=== PATIENT | male | born 1975 | race African-American/Black ===

== ENCOUNTER 2019-06-19 19:24 | Inpatient (IN) ==
[2019-06-19 20:10] LABS: #Basophils 0.1 thou/uL (0.0-0.2); #Lymphocytes 1.6 thou/uL (1.20-3.40); #Neutrophils 7.5 thou/uL (1.40-6.50); %Basophils 0.6 % (0.0-1.0); %Eosinophils 0.1 % (0.0-10.0); %Lymphocytes 15.3 % (21.0-51.0); %Monocytes 10.2 % (0.0-10.0); %Neutrophils 73.9 % (42.0-75.0); Hemoglobin 15.4 g/dL (14.0-18.0); Mean Corpuscular Volume 88.1 fL (78.0-98.0); Mean Platelet Volume 7.1 fL (7.4-10.4); Platelet Count 214 thou/uL (130-400); RBC Distribution Width 14.4 % (11.5-14.5); Red Blood Cell (RBC) Count 5.13 mill/uL (4.70-6.10); White Blood Cell (WBC) Count 10.2 thou/uL (4.8-10.8)
[2019-06-19] MEDS ORDERED: Multivitamins, Adult 10 ML, Thiamine HCl 100 MG, Folic Acid 1 MG in Dextrose 5 %-0.45 %... IV SCH (20:30)
[2019-06-19 20:32] LABS: ALT (SGPT) 32 U/L (8-55); AST (SGOT) 73 U/L (5-34); Albumin 3.8 g/dL (3.5-5.0); Alkaline Phosphatase 109 U/L (40-110); Anion Gap 24 mmol/L (10-20); BUN (Urea Nitrogen) 27 mg/dL (8.9-20.6); Bilirubin, Total 0.4 mg/dL (0.2-1.2); CK (CPK) 1526 U/L (30-200); Calc. Creatinine Clearance 0 mL/min (70-130); Calcium 7.8 mg/dL (7.8-10.44); Carbon Dioxide 21 mmol/L (22-29); Chloride 98 mmol/L (98-107); Estimated GFR-MDRD 63; Globulin 3.7 g/dL (2.4-3.5); Glucose 120 mg/dL (70-105); Lipase 129 U/L (8-78); Protein, Total 7.5 g/dL (6.0-8.3); Sodium 140 mmol/L (136-145)
[2019-06-19 20:34] LABS: Acetaminophen Less than 6.0 mcg/mL (10.0-30.0); Salicylate Less than 8.0 mg/dL (15.0-30.0)
--- NOTE | 2019-06-19 20:42 | RAD ---
RADIOGRAPH CHEST 1 VIEW: DATE: 06/19/2019 HISTORY: 44-year-old male status post vomiting. Rule out aspiration. FINDINGS: There are no airspace densities, pulmonary edema, pneumothorax, or cardiomegaly. The lateral costophr enic angles are sharp. IMPRESSION: No acute cardiopulmonary findings.
[2019-06-19 20:51] LABS: Alcohol 521 mg/dL (Less than 10)
[2019-06-19] MEDS ORDERED: Ondansetron PF 4 MG/2 ML Vial ONE (22:08)
[2019-06-19] MEDS ORDERED: Lorazepam 2 MG/ML VIAL ONE (22:33)
[2019-06-20] MEDS ORDERED: Lorazepam 2 MG/ML VIAL ONE ×2 (00:37→01:26)
[2019-06-20] MEDS ORDERED: Ondansetron ODT 4 MG TAB SL PRN (02:34)
[2019-06-20] MEDS ORDERED: Ondansetron PF 4 MG/2 ML Vial IVP PRN (02:34)
[2019-06-20] MEDS ORDERED: Acetaminophen 325 MG TAB PO PRN ×2 (02:34→10:33)
[2019-06-20 02:37] VITALS: BMI 31.6
[2019-06-20] MEDS ORDERED: Lactated Ringer's 1,000 ML IV SCH (02:45)
[2019-06-20] MEDS ORDERED: Diazepam 5 MG TAB PO PRN (02:47)
[2019-06-20] MEDS ORDERED: Diazepam 5 MG TAB PO SCH (03:00)
[2019-06-20 08:24] LABS: ALT (SGPT) 23 U/L (8-55); AST (SGOT) 53 U/L (5-34); Albumin 3.2 g/dL (3.5-5.0); Alkaline Phosphatase 94 U/L (40-110); Anion Gap 16 mmol/L (10-20); BUN (Urea Nitrogen) 16 mg/dL (8.9-20.6); Bilirubin, Total 0.9 mg/dL (0.2-1.2); Calc. Creatinine Clearance 174 mL/min (70-130); Calcium 7.2 mg/dL (7.8-10.44); Carbon Dioxide 25 mmol/L (22-29); Chloride 98 mmol/L (98-107); Estimated GFR-MDRD Greater than 90; Glucose 101 mg/dL (70-105); Magnesium 1.4 mg/dL (1.6-2.6); Phosphorus 2.3 mg/dL (2.3-4.7); Protein, Total 6.2 g/dL (6.0-8.3); Sodium 136 mmol/L (136-145)
[2019-06-20] MEDS ORDERED: Propofol 1,000 MG/100 ML VIAL IV ONE (08:28)
[2019-06-20] MEDS ORDERED: FLU VACC QS2019-20(6MOS UP)/PF 60 MCG/0.5 ML SYRINGE IM ONE (09:00)
[2019-06-20] MEDS ORDERED: Magnesium Sulfate 4 GM in Sodium Chloride 0.9% 250 ML 250 ML IVPB SCH (09:00)
[2019-06-20] MEDS ORDERED: Ondansetron ODT 4 MG TAB PO PRN (10:33)
[2019-06-20] MEDS ORDERED: Calcium Carbonate 500 MG ChewTAB PO PRN (10:33)
[2019-06-20] MEDS ORDERED: Senokot S 8.6-50 MG TAB PO PRN (10:33)
[2019-06-20] MEDS ORDERED: Bisacodyl 10 MG SUPP PR PRN (10:33)
[2019-06-20] MEDS: Ondansetron PF 4 MG/2 ML Vial IVP PRN ×2 (11:07→18:07)
[2019-06-20 11:10] LABS: Amphetamine Not Detected (NotDetected); Barbiturates Screen Not Detected (NotDetected); Benzodiazepine Screen Detected (NotDetected); Cocaine Metabolite Screen Not Detected (NotDetected); Medtox Control Line Valid? VALID (VALID); Medtox Reader # READER 4; Methadone Not Detected (NotDetected); Methamphetamine Not Detected (NotDetected); Opiate Screen Not Detected (NotDetected); Oxycodone Screen Not Detected (NotDetected); Phencyclidine (PCP) Not Detected (NotDetected); THC/Cannabinoid Screen Detected (NotDetected); Tricyclic Screen Not Detected (NotDetected)
--- NOTE | 2019-06-20 11:23 | HP ---
PRIMARY CARE PHYSICIAN: The patient is from out of town. HISTORY OF PRESENT ILLNESS: The patient is a 44-year-old male with chronic alcohol abuse, was brought in by EMS yesterday evening due to altered mentation. The patient was found in his truck. He was wandering around his motel. He had vomited on himself per EMS. His alcohol level in the emergency room was 521. At this time, the patient's mentation has significantly improved. He has some nausea. He denies any complaints except for generalized muscle aches. No fever or chills reported. He denies any suicidal ideation. PAST MEDICAL HISTORY: 1. Hypertension. 2. Anxiety. 3. Chronic alcoholism. 4. Chronic insomnia, on Seroquel. PAST SURGICAL HISTORY: Reviewed with the patient and none. ALLERGIES: NO KNOWN DRUG ALLERGIES. CURRENT HOME MEDICATIONS: 1. Lisinopril 40 mg daily. 2. Amlodipine 10 mg daily. 3. Seroquel 25 mg at bedtime. SOCIAL HISTORY: As discussed above. He also abuses cannabis and tobacco. He is currently homeless. FAMILY HISTORY: Negative for premature coronary artery disease. REVIEW OF SYSTEMS: All other review of systems was reviewed and was found negative. PHYSICAL EXAMINATION: VITAL SIGNS: On ER arrival showed temperature 97.4, respirations of 18, pulse rate of 112, and blood pressure of 111/89 with O2 saturation 95% on room air. GENERAL: A 44-year-old male, in no apparent distress. Mentation improving. Still has some nausea. HEENT: Head, atraumatic and normocephalic. Sclerae anicteric. Moist mucous membranes. No oral lesion. NECK: Supple. No JVD appreciated. No carotid bruit. LUNGS: Showed diminished air entry at bilateral bases. No wheezing or rales. HEART: S1 and S2 present. Regular rate and rhythm. No rubs or gallops. ABDOMEN: Soft and nontender. Bowel sounds present. No guarding rigidity. EXTREMITIES: No edema or calf tenderness. NEUROLOGIC: The patient is moving all of his extremities appropriately. Power was 5/5 in all extremities. PSYCHIATRIC: Alert, awake, and oriented x3. SKIN: Warm and dry. LYMPH NODES: No palpable lymph nodes in the neck. PERIPHERAL VASCULAR: Radial pulses palpable bilaterally. MUSCULOSKELETAL: No joint swelling tenderness. LABORATORY FINDINGS: Potassium 3.0 with bicarbonate 21, BUN 27, creatinine 1.48. CK of 1526. WBC 10.2 with hemoglobin 15.4, platelet count of 214. Magnesium 1.4. Plasma alcohol was 521. Urine drug screen was not done. Chest x-ray by my review was negative for infiltrate or edema. Telemetry monitoring by my review showed sinus rhythm/sinus tachycardia. IMPRESSION: 1. Toxic metabolic encephalopathy secondary to alcohol intoxication. 2. Acute kidney injury secondary to dehydration, nausea, vomiting, and alcohol abuse. 3. Hypokalemia/hypomagnesemia. 4. Slightly abnormal LFTs secondary to chronic alcoholism. 5. Rhabdomyolysis with CK of 1526. 6. Obesity with a BMI of 31.6. 7. Hypertension. 8. Anxiety. 9. Chronic insomnia. 10. Dehydration. PLAN: The patient will be started on alcohol withdrawal protocol. We will replace electrolytes. He was extensively counseled to quit drinking. He, however, prefers to continue drinking. We will start him on thiamine, folic acid, and multivitamin. IV fluids for rhabdomyolysis. Restart his home medications once renal function improves. Recheck labs in a.m. We will consult [facility] when medically stable. The patient understands the above plan of care in detail. He stated understanding. Job ID: [id number]
[2019-06-20] MEDS: Potassium Chloride 20 MEQ TAB PO SCH ×2 (11:38→18:05)
[2019-06-20] MEDS: 1/2 NS w/KCL 20 mEq 1,000 ML IV SCH ×3 (11:38→19:51)
[2019-06-20] MEDS: Lorazepam 1 MG TAB PO PRN ×3 (11:38→21:39)
[2019-06-20] MEDS ORDERED: BEER 1 CAN PO SCH ×2 (12:00)
[2019-06-20] MEDS: cloNIDine 0.1 MG TAB PO SCH ×2 (14:13→19:51)
[2019-06-20] MEDS ORDERED: Pantoprazole 40 MG VIAL IVP SCH (14:45)
[2019-06-20] MEDS: BEER 1 CAN PO SCH (18:05)
[2019-06-20] MEDS ORDERED: Thiamine 100 MG TAB PO SCH (21:00)
[2019-06-20] MEDS ORDERED: Folic Acid 1 MG TAB PO SCH (21:00)
[2019-06-20] MEDS ORDERED: Lisinopril 5 MG TAB PO SCH (21:00)
[2019-06-20] MEDS ORDERED: Multivit, Therapeutic 1 TAB PO SCH (21:00)
[2019-06-20] MEDS ORDERED: Famotidine 20 MG TAB PO SCH (21:00)
[2019-06-21] MEDS: Lorazepam 1 MG TAB PO PRN ×3 (01:43→15:02)
[2019-06-21] MEDS ORDERED: Diazepam 5 MG TAB PO PRN (04:00)
[2019-06-21] MEDS: 1/2 NS w/KCL 20 mEq 1,000 ML IV SCH (04:15)
[2019-06-21 06:43] LABS: ALT (SGPT) 26 U/L (8-55); AST (SGOT) 58 U/L (5-34); Albumin 3.6 g/dL (3.5-5.0); Alcohol Less than 10 mg/dL (Less than 10); Alkaline Phosphatase 112 U/L (40-110); Anion Gap 15 mmol/L (10-20); BUN (Urea Nitrogen) 7 mg/dL (8.9-20.6); Bilirubin, Total 1.4 mg/dL (0.2-1.2); CK (CPK) 1147 U/L (30-200); Calc. Creatinine Clearance 198 mL/min (70-130); Calcium 8.6 mg/dL (7.8-10.44); Carbon Dioxide 24 mmol/L (22-29); Chloride 97 mmol/L (98-107); Estimated GFR-MDRD Greater than 90; Globulin 3.4 g/dL (2.4-3.5); Glucose 101 mg/dL (70-105); Potassium 3.7 mmol/L (3.5-5.1); Sodium 132 mmol/L (136-145)
[2019-06-21] MEDS ORDERED: Potassium Phosphate 15 MMOL in Sodium Chloride 0.9% 250 ML 250 ML IVPB SCH (07:30)
[2019-06-21] MEDS: cloNIDine 0.1 MG TAB PO SCH ×2 (07:59→15:02)
[2019-06-21] MEDS: Potassium Chloride 20 MEQ TAB PO SCH ×2 (08:00→11:36)
[2019-06-21] MEDS ORDERED: Pantoprazole 40 MG VIAL IVP SCH (09:00)
[2019-06-21] MEDS: BEER 1 CAN PO SCH (09:07)
[2019-06-21 11:40] VITALS: TEMP 98.7
[2019-06-21] MEDS ORDERED: BEER 1 CAN PO SCH (12:00)
[2019-06-21] MEDS: Ondansetron PF 4 MG/2 ML Vial IVP PRN (13:00)
[2019-06-21 15:04] VITALS: BP 136/88
--- NOTE | 2019-06-22 21:54 | DIS ---
DATE OF ADMISSION: 06/20/2019 DATE OF DISCHARGE: 06/21/2019 DISCHARGE DISPOSITION: Home. FOLLOWUP: 1. Follow up with [facility] in 1 week. 2. Follow up with [facility] as outpatient. 3. CMP and CK after 1 week is recommended. Primary care physician advised to follow. DISCHARGE INSTRUCTIONS: The patient was seen and examined on the day of discharge. Denies any new complaints. No chest pain, shortness of breath, or palpitations reported. The patient is ambulating in the hallway. BRIEF HOSPITAL COURSE: The patient is a 44-year-old male with chronic alcohol abuse, presented to the emergency room with altered mentation. He was found in his truck. He was wandering around the motel. He also had vomited himself. Please refer to the history and physical for further details. The patient was admitted to the hospital with a diagnosis of toxic metabolic encephalopathy secondary to alcohol intoxication. His blood alcohol on admission was 521. His urine drug screen was positive for cannabinoid as well. He was found to have acute kidney injury with creatinine 1.48, BUN of 27, potassium of 3.0, as well as CK of 1526. He showed good improvement with IV fluids as well as alcohol withdrawal protocol. His mentation significantly improved. He was evaluated by [facility]. He has been cleared by [facility] for discharge. The patient denies any active suicidal ideation. He appears stable for discharge. FINAL DIAGNOSES: 1. Toxic metabolic encephalopathy secondary to alcohol intoxication, resolved. 2. Acute kidney injury secondary to dehydration, nausea, vomiting, as well as alcohol abuse. 3. Hypokalemia, replaced. 4. Hypomagnesemia, replaced. 5. Slightly abnormal LFTs probably secondary to chronic alcoholism. Repeat LFTs next week is recommended. 6. Rhabdomyolysis, improving. Repeat CK next week is recommended. The patient was advised to maintain adequate oral intake. 7. Obesity with a BMI of 31.6. 8. Hypertension. 9. Anxiety. 10. Chronic insomnia. 11. Dehydration. PLAN: Plan was discussed with the patient in detail. He stated understanding. Job ID: [id number]
== END 2019-06-21 16:20 | disposition home or self-care (01) | DRG 896 ==
LOC: ERS 19:24 → IMCU/EMU 06-20 01:23 → OBSVTOIN 06-20 01:23 → T4-A 06-20 12:30
PROVIDERS: ADMIT Internal Medicine; ATTEND Internal Medicine
DX: F10.229 Alcohol dependence with intoxication, unspecified (principal); G92 Toxic encephalopathy; N17.9 Acute kidney failure, unspecified; M62.82 Rhabdomyolysis; T51.0X1A Toxic effect of ethanol, accidental (unintentional), initial encounter; Y90.8 Blood alcohol level of 240 mg/100 ml or more; E86.0 Dehydration; E83.42 Hypomagnesemia; E66.9 Obesity, unspecified; F17.290 Nicotine dependence, other tobacco product, uncomplicated; F41.9 Anxiety disorder, unspecified; F51.04 Psychophysiologic insomnia; I10 Essential (primary) hypertension; Z59.0 Homelessness; Z68.31 Body mass index [BMI] 31.0-31.9, adult; Z79.899 Other long term (current) drug therapy; E87.6 Hypokalemia; F12.10 Cannabis abuse, uncomplicated
CPT/HCPCS: 36415; 71045; 80053; 80306; 80307; 82550; 83690; 83735; 84100; 85025; 94760; 96365; 96366; 96375; 96376; C9113; J2060; J2405; J2704; J3411; J3475; J3480; J7042; J7050; Q0162

== ENCOUNTER 2019-06-22 20:11 | Emergency (ER) | payer SELFPAY ==
[2019-06-22 20:54] LABS: #Basophils 0.1 thou/uL (0.0-0.2); #Eosinphils 0.1 thou/uL (0.0-0.7); #Lymphocytes 1.8 thou/uL (1.20-3.40); #Monocytes 1.3 thou/uL (0.11-0.59); %Basophils 0.8 % (0.0-1.0); %Eosinophils 0.7 % (0.0-10.0); %Lymphocytes 15.9 % (21.0-51.0); %Monocytes 11.5 % (0.0-10.0); %Neutrophils 71.1 % (42.0-75.0); Hemoglobin 13.2 g/dL (14.0-18.0); Mean Corpuscular HGB CONC 33.6 g/dL (32.0-36.0); Mean Corpuscular Hemoglobin 29.9 pg (27.0-31.0); Mean Platelet Volume 8.2 fL (7.4-10.4); Platelet Count 180 thou/uL (130-400); Red Blood Cell (RBC) Count 4.42 mill/uL (4.70-6.10); White Blood Cell (WBC) Count 11.3 thou/uL (4.8-10.8)
[2019-06-22 21:25] LABS: Acetaminophen Less than 6.0 mcg/mL (10.0-30.0); Alcohol 249 mg/dL (Less than 10); Salicylate Less than 8.0 mg/dL (15.0-30.0)
[2019-06-22 21:38] LABS: Bacteria/HPF None Seen HPF (None Seen); Bilirubin Negative (Negative); Blood, Urine 1+ (Negative); Clarity Clear (Clear); Glucose, Urine (Dipstick) Normal (Negative); Leukocyte 250 Leu/uL (Negative); Nitrite Negative (Negative); Protein, Urine (Dipstick) 70 mg/dL (Neg-Trace); Squamous Epithelial 0-3 HPF (0-3); Urobilinogen Normal mg/dL (Less than 2); WBC/HPF 21-50 HPF (0-3)
[2019-06-22 21:45] LABS: Medtox Reader # READER 1; THC/Cannabinoid Screen Detected (NotDetected)
[2019-06-22 21:46] LABS: Amphetamine Not Detected (NotDetected); Barbiturates Screen Not Detected (NotDetected); Benzodiazepine Screen Detected (NotDetected); Cocaine Metabolite Screen Not Detected (NotDetected); Medtox Control Line Valid? VALID (VALID); Methadone Not Detected (NotDetected); Methamphetamine Not Detected (NotDetected); Opiate Screen Not Detected (NotDetected); Oxycodone Screen Not Detected (NotDetected); Phencyclidine (PCP) Not Detected (NotDetected); Tricyclic Screen Not Detected (NotDetected)
[2019-06-22] MEDS ORDERED: Lorazepam 2 MG/ML VIAL ONE (22:26)
[2019-06-22] MEDS ORDERED: Nicotine 14 MG PATCH ONE (22:43)
[2019-06-23 00:04] LABS: Albumin 3.5 g/dL (3.5-5.0)
[2019-06-23 00:05] LABS: Calcium 7.8 mg/dL (7.8-10.44); Chloride 102 mmol/L (98-107); Potassium 3.4 mmol/L (3.5-5.1); Sodium 138 mmol/L (136-145)
[2019-06-23 00:06] LABS: Glucose 109 mg/dL (70-105); Protein, Total 6.5 g/dL (6.0-8.3)
[2019-06-23 00:07] LABS: Anion Gap 14 mmol/L (10-20); Carbon Dioxide 25 mmol/L (22-29)
[2019-06-23 00:08] LABS: Bilirubin, Total 0.2 mg/dL (0.2-1.2)
[2019-06-23 00:09] LABS: Alkaline Phosphatase 94 U/L (40-110)
[2019-06-23 00:10] LABS: BUN (Urea Nitrogen) 13 mg/dL (8.9-20.6); Calc. Creatinine Clearance 0 mL/min (70-130); Estimated GFR-MDRD Greater than 90
[2019-06-23 00:11] LABS: AST (SGOT) 46 U/L (5-34)
[2019-06-23 00:12] LABS: ALT (SGPT) 22 U/L (8-55); CK (CPK) 906 U/L (30-200)
[2019-06-23] MEDS ORDERED: hydrOXYzine 25 MG TAB ONE (14:58)
[2019-06-24] MEDS ORDERED: Nicotine 14 MG PATCH TOP SCH (01:00)
[2019-06-24] MEDS ORDERED: traZODone HCl 50 MG TAB PO PRN (01:10)
[2019-06-24] MEDS ORDERED: hydrOXYzine Pamoate 25 mg Capsule PO PRN (09:50)
[2019-06-24] MEDS ORDERED: hydrOXYzine 25 MG TAB ONE (10:49)
[2019-06-25] MEDS ORDERED: Lisinopril 20 MG TAB PO SCH (09:00)
[2019-06-25] MEDS ORDERED: Amlodipine 10 MG TAB PO SCH (09:00)
== END 2019-06-24 16:34 ==
LOC: ERS 20:11
DX: F32.9 Major depressive disorder, single episode, unspecified (principal); F10.20 Alcohol dependence, uncomplicated; F41.9 Anxiety disorder, unspecified; I10 Essential (primary) hypertension; F17.290 Nicotine dependence, other tobacco product, uncomplicated; Z79.899 Other long term (current) drug therapy
CPT/HCPCS: 36415; 80053; 80306; 80307; 81003; 81015; 82550; 84443; 85025; 93005; 96361; 96374; J2060

== ENCOUNTER 2020-01-02 08:59 | Inpatient (IN) | payer OTHER, SELFPAY ==
[2020-01-02] MEDS ORDERED: Lorazepam 2 MG/ML VIAL ONE ×2 (09:17→11:38)
[2020-01-02] MEDS ORDERED: Diltiazem 125 MG/25 ML ONE (09:51)
[2020-01-02 10:29] LABS: Bacteria/HPF None Seen HPF (None Seen); Bilirubin Negative (Negative); Blood, Urine 2+ (Negative); Clarity Clear (Clear); Glucose, Urine (Dipstick) Normal (Negative); Ketone, Urine Trace mg/dL (Negative); Leukocyte Negative Leu/uL (Negative); Nitrite Negative (Negative); Protein, Urine (Dipstick) 30 mg/dL (Neg-Trace); RBC/HPF 0-3 HPF (0-3); Specific Gravity, Urine 1.012 (1.002-1.036); Squamous Epithelial 0-3 HPF (0-3); Urobilinogen Normal mg/dL (Less than 2); WBC/HPF 0-3 HPF (0-3); pH, Urine 6.5 (5.0-9.0)
[2020-01-02 10:29] LABS: #Monocytes 0.4 thou/uL (0.11-0.59); #Neutrophils 15.5 thou/uL (1.40-6.50); %Basophils 0.3 % (0.0-1.0); %Eosinophils 0.2 % (0.0-10.0); %Neutrophils 91.5 % (42.0-75.0); Hemoglobin 15.1 g/dL (14.0-18.0); Mean Corpuscular HGB CONC 35.6 g/dL (32.0-36.0); Mean Corpuscular Volume 86.9 fL (78.0-98.0); Mean Platelet Volume 9.2 fL (7.4-10.4); Platelet Count 128 thou/uL (130-400); RBC Distribution Width 12.4 % (11.5-14.5); Red Blood Cell (RBC) Count 4.87 mill/uL (4.70-6.10)
[2020-01-02 10:32] LABS: Amphetamine Not Detected (NotDetected); Barbiturates Screen Not Detected (NotDetected); Benzodiazepine Screen Not Detected (NotDetected); Cocaine Metabolite Screen Not Detected (NotDetected); Medtox Control Line Valid? VALID (VALID); Medtox Reader # READER 4; Methadone Not Detected (NotDetected); Methamphetamine Not Detected (NotDetected); Opiate Screen Not Detected (NotDetected); Oxycodone Screen Not Detected (NotDetected); Phencyclidine (PCP) Not Detected (NotDetected); THC/Cannabinoid Screen Detected (NotDetected); Tricyclic Screen Not Detected (NotDetected)
[2020-01-02 10:42] LABS: ALT (SGPT) 129 U/L (8-55); AST (SGOT) 279 U/L (5-34); Acetaminophen Less than 6.0 mcg/mL (10.0-30.0); Albumin 3.4 g/dL (3.5-5.0); Alcohol 60 mg/dL (Less than 10); Alkaline Phosphatase 88 U/L (40-110); Anion Gap 19 mmol/L (10-20); BUN (Urea Nitrogen) 13 mg/dL (8.9-20.6); Calc. Creatinine Clearance 0 mL/min (70-130); Calcium 6.9 mg/dL (7.8-10.44); Carbon Dioxide 19 mmol/L (22-29); Chloride 102 mmol/L (98-107); Estimated GFR-MDRD Greater than 90; Globulin 2.8 g/dL (2.4-3.5); Glucose 101 mg/dL (70-105); Protein, Total 6.2 g/dL (6.0-8.3); Salicylate Less than 8.0 mg/dL (15.0-30.0); Sodium 137 mmol/L (136-145)
--- NOTE | 2020-01-02 10:44 | CT ---
CT Brain WO Con History: Seizure Comparison: None. Findings: No acute hemorrhage or infarct. No midline shift or mass effect. Ventricular size and extra -axial CSF spaces are normal. Calvarium is intact. Paranasal sinuses and mastoids are clear. Impression: No acute intracranial abnormality.
[2020-01-02 10:46] LABS: Potassium 2.5 mmol/L (3.5-5.1)
[2020-01-02 11:07] LABS: CKMB 92.8 ng/mL (0-6.6)
--- NOTE | 2020-01-02 11:12 | RAD ---
XR Chest 1 View Portable History: Seizure Comparison: Radiograph June 19, 2019 Findings: Lungs are clear. No pneumothorax. No effusion. Heart size appears normal. No acute osseous abnormality. Impression: No acute intrathoracic abnormality.
[2020-01-02] MEDS ORDERED: Potassium Chloride 20 MEQ TAB ONE (11:22)
[2020-01-02] MEDS ORDERED: Aspirin 325 MG TAB ONE (11:22)
[2020-01-02] MEDS ORDERED: cloNIDine 0.1 MG TAB PO PRN (11:25)
[2020-01-02] MEDS ORDERED: Aspirin Chewable 81 MG TAB ONE (11:26)
[2020-01-02] MEDS ORDERED: Calcium Carbonate 500 MG ChewTAB PO PRN (11:27)
[2020-01-02] MEDS ORDERED: cloNIDine 0.1 MG TAB ONE ×2 (11:27→15:59)
[2020-01-02 11:30] LABS: INR-International Normal Ratio 1.2; PTT 27.6 sec (22.9-36.1); Prothrombin Time 14.8 sec (12.0-14.7)
[2020-01-02] MEDS ORDERED: Potassium Chloride 40 MEQ in Sodium Chloride 0.9% 250 ML 250 ML IVPB SCH (11:30)
[2020-01-02] MEDS ORDERED: Diltiazem 125 MG in Sodium Chloride 0.9% 100 ML IVPB SCH (11:30)
[2020-01-02] MEDS ORDERED: Aspirin 81 mg Enteric Coated Tablet PO SCH (11:30)
[2020-01-02] MEDS ORDERED: cloNIDine 0.1 MG TAB PO SCH ×2 (11:30→15:00)
[2020-01-02 11:32] LABS: Magnesium 1.6 mg/dL (1.6-2.6); Phosphorus 2.3 mg/dL (2.3-4.7)
[2020-01-02] MEDS ORDERED: Lorazepam 2 MG/ML VIAL SLOW IVP PRN (11:34)
[2020-01-02] MEDS ORDERED: Nitroglycerin 0.4 MG TAB (25 Tab Bottle) PO PRN (11:35)
[2020-01-02] MEDS ORDERED: Metoprolol Tartrate 5 MG/5 ML VIAL ONE (11:36)
[2020-01-02] MEDS ORDERED: NS 0.9% w/ 40 MEQ KCL 1,000 ML IV SCH (11:45)
[2020-01-02] MEDS ORDERED: Multivitamins, Adult 10 ML, Thiamine HCl 100 MG, Folic Acid 1 MG in Dextrose 5 %-0.45 %... IV SCH (12:00)
[2020-01-02] MEDS ORDERED: Enoxaparin Sodium 100 MG/ML SYRINGE ONE (12:03)
[2020-01-02] MEDS ORDERED: Iopamidol-370 76% 500 ML 1 ML ONE (12:05)
[2020-01-02] MEDS ORDERED: Magnesium 2 GM/50 ML BAG (IN WATER) ONE (12:06)
--- NOTE | 2020-01-02 12:08 | PDOC.HHP ---
Hospitalist HPI - History of Present Illness Gen weakness/Lightheadedness History of Present Illness: Patient is a 44-year-old male with chronic alcohol abuse presented to the emergency room with generalized weakness along with lightheadedness that started when he woke up this morning. He felt fine when he went to sleep last night. He was hospitalized at this facility earlier this year for alcohol intoxication along with acute kidney injury and electrolyte abnormalities. Patient felt lightheaded dizzy along with palpitations. He was seeing spots especially on standing. He denies any seizure like activity or altered mentation. He has been drinking heavily over the last 3 days. No chest pain, syncope, recent immobilization or travel, fever, chills, or focal neurologic deficit reported. In the emergency room, his work-up was consistent with atrial fibrillation with rapid ventricular response. He also was found to have electrolyte abnormality. He was placed on Cardizem drip. ED Course: VITAL SIGNS FriJan 02, 2020 09:13 CRISTY Davis Hannah BP: 99/74, MAP: 82, Pulse: 155, Resp: 22, Pain: 10, O2 sat: 100 on (Room Air), Time: 01/02/2020 09:13. VITAL SIGNS FriJan 02, 2020 09:15 CRISTY Davis Hannah Temp: 97.5 GROIN (Not applicable), Time: 01/02/2020 09:15. VITAL SIGNS FriJan 02, 2020 09:50 CRISTY Tsai Shelley BP: 140/108, MAP: 118, Pulse: 153, Resp: 21, Pain: 5, O2 sat: 100 on (Room Air) , Time: 01/02/2020 09:50. VITAL SIGNS FriJan 02, 2020 09:26 CRISTY Tsai Shelley BP: 122/92, MAP: 102, Pulse: 137, Resp: 19, Pain: 10, O2 sat: 100 on (Room Air) , Time: 01/02/2020 09:26. VITAL SIGNS FriJan 02, 2020 10:10 CRISTY Tsai Shelley BP: 151/103, MAP: 119, Pulse: 145, Resp: 22, Pain: 5, O2 sat: 100 on (Room Air) , Time: 01/02/2020 10:10. VITAL SIGNS FriJan 02, 2020 10:24 CRISTY Tsai Shelley BP: 130/101, MAP: 110, Pulse: 134, Resp: 23, Temp: 98.3 (Oral), Pain: 5, O2 sat : 100, Time: 01/02/2020 10:24. VITAL SIGNS Whitman Jan 02, 2020 10:34 CRISTY Tsai Shelley BP: 142/85, MAP: 104, Pulse: 148, Resp: 19, Pain: 0 sleeping, O2 sat: 100 on ( Room Air), Time: 01/02/2020 10:34. VITAL SIGNS Whitman Jan 02, 2020 11:00 CRISTY Tsai Shelley BP: 135/84, MAP: 107, Pulse: 145, Resp: 19, Pain: 0, O2 sat: 99 on (Room Air), Time: 01/02/2020 11:00. VITAL SIGNS Whitman Jan 02, 2020 11:15 CRISTY Tsai Shelley BP: 136/103, MAP: 114, Pulse: 142, Resp: 20, Pain: 0, O2 sat: 100 on (Room Air) , Time: 01/02/2020 11:15. VITAL SIGNS Whitman Jan 02, 2020 11:30 CRISTY Tsai Shelley BP: 140/108, MAP: 117, Pulse: 155, Resp: 15, Pain: 0, O2 sat: 98 on (Room Air), Time: 01/02/2020 11:30. MEDICATION ADMINISTRATION SUMMARY Whitman Jan 02, 2020 12:07 Drug Name Dose Ordered Route Status Time magnesium sulfate in water 4 g IV Piggy Back Ordered 11:52 01/02/2020 aspirin oral 324 mg Oral Canceled 11:28 01/02/2020 *BANANA BAG 1 L IV Fluid Infusion Ordered 10:26 01/02/2020 *enoxaparin 100 mg Subcutaneous Acknowledged 12:06 01/02/2020 *potassium chloride intravenous 40 mEq IV Piggy Back Acknowledged 11:34 2019 *metoprolol tartrate intravenous 5 mg IV Push Given 12:00 01/02/2020 LORazepam injection 2 mg IV Push Given 11:50 01/02/2020 *aspirin oral 81 mg Oral Given 11:30 01/02/2020 potassium chloride oral 40 mEq Oral Given 11:30 01/02/2020 *cloNIDine HCl 0.1 mg Oral Given 11:30 01/02/2020 dilTIAZem intravenous 10 mg/hr IV Push Given 11:10 01/02/2020 dilTIAZem intravenous 5 mg/hr IV Fluid Infusion Given 10:33 01/02/2020 dilTIAZem intravenous 20 mg IV Push Given 10:21 01/02/2020 sodium chloride 0.9 % intravenous 2 L IV Fluid Infusion Given 09:49 01/02/2020 sodium chloride 0.9 % intravenous 2 L IV Fluid Infusion Given 09:23 01/02/2020 LORazepam injection 2 mg IV Push Given 09:22 01/02/2020 Hospitalist ROS - Review of Systems Respiratory: denies: cough, dry, shortness of breath, hemoptysis, SOB with excertion, pleuritic pain, sputum, wheezing, other Gastrointestinal: denies: nausea, vomiting, abdominal pain, diarrhea, constipation, melena, hematochezia, other Neurological: denies: weakness, numbness, incoordination, change in speech, confusion, seizures, other All other systems reviewed; all pertinent +/- noted in HPI/Subj - Medication Medications: CURRENT MEDICATIONS lisinopril FriJan 02, 2020 09:28 CRISTY Tsai Shelley tablet : Strength - 20 mg : ORAL Patient Dose: 40 mg Oral once a day. amLODIPine FriJan 02, 2020 09:28 CRISTY Tsai Shelley tablet : Strength - 10 mg : ORAL Patient Dose: 10 mg Oral once a day. SEROquel FriJan 02, 2020 09:28 CRISTY Tsai Shelley tablet : Strength - 50 mg : ORAL Patient Dose: 50 mg Oral once a day (at bedtime). omeprazole FriJan 02, 2020 09:28 CRISTY Tsai Shelley capsule,delayed release(DR/EC) : Strength - 40 mg : ORAL Patient Dose: 1 tab(s) Oral once a day. sertraline FriJan 02, 2020 09:28 CRISTY Tsai Shelley tablet : Strength - 50 mg : ORAL Patient Dose: 1 tab(s) Oral once a day. Lexapro FriJan 02, 2020 09:29 CRISTY Tsai Shelley tablet : Strength - 10 mg : ORAL Hospitalist History - Past Medical History Other Medical History: PAST MEDICAL HISTORY: 1. Hypertension. 2. Anxiety. 3. Chronic alcoholism. 4. Chronic insomnia, on Seroquel. PAST SURGICAL HISTORY: Reviewed with the patient and none. ALLERGIES: NO KNOWN DRUG ALLERGIES. CURRENT SOCIAL HISTORY: Episodic Binge drinking. He also abuses cannabis and tobacco. He is currently lives with his father. He asked me not to call his father. FAMILY HISTORY: Negative for premature coronary artery disease. - Exam General Appearance: NAD General - other findings: Anxious appearing Eye: PERRL, anicteric sclera ENT: normocephalic atraumatic, no oropharyngeal lesions, moist mucosa Neck: supple, symmetric, no JVD, no thyromegaly Heart: no gallops, no rubs, irregular, diminshed peripheral pulses Heart - other findings: Tachycardic Respiratory: no wheezes, no rales, no ronchi, normal chest expansion Gastrointestinal: soft, non-tender, normal bowel sounds, no guarding, no rigidity Extremities: no cyanosis, no clubbing, no edema Skin: normal turgor, no lesions Neurological: cranial nerve grossly intact, normal sensation to touch, no weakness, no focal deficits Musculoskeletal: normal tone, normal strength, no muscle wasting Psychiatric: normal affect, A&O x 3 Hospitalist Results - Labs Result Diagrams: 01/02/20 10:15 01/02/20 10:15 Lab results: WBC 17.0 thou/uL (4.8-10.8) H 01/02/20 10:15 Hgb 15.1 g/dL (14.0-18.0) 01/02/20 10:15 Hct 42.3 % (42.0-52.0) 01/02/20 10:15 MCV 86.9 fL (78.0-98.0) 01/02/20 10:15 Plt Count 128 thou/uL (130-400) L 01/02/20 10:15 Neutrophils % 91.5 % (42.0-75.0) H 01/02/20 10:15 Sodium 137 mmol/L (136-145) 01/02/20 10:15 Potassium 2.5 mmol/L (3.5-5.1) L* 01/02/20 10:15 Chloride 102 mmol/L (98-107) 01/02/20 10:15 Carbon Dioxide 19 mmol/L (22-29) L 01/02/20 10:15 BUN 13 mg/dL (8.9-20.6) 01/02/20 10:15 Creatinine 0.95 mg/dL (0.7-1.3) 01/02/20 10:15 Glucose 101 mg/dL (70-105) 01/02/20 10:15 Lactic Acid 5.9 mmol/L (0.5-2.2) H* 01/02/20 10:15 Calcium 6.9 mg/dL (7.8-10.44) L 01/02/20 10:15 Total Bilirubin 1.0 mg/dL (0.2-1.2) 01/02/20 10:15 AST 279 U/L (5-34) H 01/02/20 10:15 ALT 129 U/L (8-55) H 01/02/20 10:15 Alkaline Phosphatase 88 U/L (40-110) 01/02/20 10:15 Ammonia 22 umol/L (18-72) 01/02/20 10:15 CK-MB (CK-2) 92.8 ng/mL (0-6.6) H* 01/02/20 10:15 Troponin I 0.069 ng/mL (< 0.028) H 01/02/20 10:15 Serum Total Protein 6.2 g/dL (6.0-8.3) 01/02/20 10:15 Albumin 3.4 g/dL (3.5-5.0) L 01/02/20 10:15 Lipase 53 U/L (8-78) 01/02/20 10:15 Urine Ketones Trace mg/dL (Negative) A 01/02/20 10:09 Urine Blood 2+ (Negative) A 01/02/20 10:09 Urine Nitrite Negative (Negative) 01/02/20 10:09 Ur Leukocyte Esterase Negative Nikhil/uL (Negative) 01/02/20 10:09 Urine RBC 0-3 HPF (0-3) 01/02/20 10:09 Urine WBC 0-3 HPF (0-3) 01/02/20 10:09 Ur Squamous Epith Cells 0-3 HPF (0-3) 01/02/20 10:09 Urine Bacteria None Seen HPF (None Seen) 01/02/20 10:09 Laboratory Tests 01/02/20 01/02/20 01/02/20 10:09 10:15 10:15 PT INR APTT D-Dimer Lactic Acid 5.9 H* Magnesium AST ALT B-Natriuretic Peptide Lipase 53 TSH 3rd Generation Prolactin U Cannabinoids Screen Detected H Plasma Alcohol 01/02/20 01/02/20 01/02/20 10:15 10:15 10:15 PT INR APTT D-Dimer Lactic Acid Magnesium AST 279 H ALT 129 H B-Natriuretic Peptide Lipase TSH 3rd Generation 0.8664 Prolactin 28.22 H U Cannabinoids Screen Plasma Alcohol 60 H 01/02/20 01/02/20 01/02/20 10:15 10:15 10:16 PT 14.8 H INR 1.2 APTT 27.6 D-Dimer Lactic Acid Magnesium 1.6 AST ALT B-Natriuretic Peptide 19.9 Lipase TSH 3rd Generation Prolactin U Cannabinoids Screen Plasma Alcohol 01/02/20 10:16 PT INR APTT D-Dimer 2.07 H Lactic Acid Magnesium AST ALT B-Natriuretic Peptide Lipase TSH 3rd Generation Prolactin U Cannabinoids Screen Plasma Alcohol - EKG Interpretation EKG: Afib with RVR - Reviewed by me - Radiology Interpretation Chest x-ray Status: image reviewed by me Additional Comment: XR Chest 1 View Portable History: Seizure Comparison: Radiograph June 19, 2019 Findings: Lungs are clear. No pneumothorax. No effusion. Heart size appears normal. No acute osseous abnormality. Impression: No acute intrathoracic abnormality. Hospitalist H&P A/P - Plan Plan: Atrial fibrillation with rapid ventricular response probably due to binge drinking Chronic alcohol abuse HTN Hypokalemia Hypomagnesemia Anxiety Chronic insomnia Cannabis abuse Abnormal LFTs probably secondary to alcoholism Lactic acidosismultifactorial Plan: Patient is currently in atrial fibrillation with rapid ventricular response with heart rate in 150s to 160s despite Cardizem drip at 10 mg/h. Will will administer 5 mg metoprolol. He will be also started on clonidine for possible alcohol withdrawal. Electrolytes will be replaced. Cardizem drip will be continued. Will add oral metoprolol 25 mg twice daily. Echocardiogram will be obtained. Case discussed with cardiology. Serial troponins. Anticoagulation with Lovenox. Patient understands the risk associated with anticoagulation and agrees. He currently lives with his fatherpatient requested not to call his father. He will update his family. Patient was counseled on lifestyle modification. Recheck labs in a.m. monitor closely for alcohol withdrawal. Start thiamine, folic acid and multivitamin. Hold Lisinopril and Amlodipine.
[2020-01-02 13:31] LABS: Anion Gap 14 mmol/L (10-20); BUN (Urea Nitrogen) 11 mg/dL (8.9-20.6); Calc. Creatinine Clearance 0 mL/min (70-130); Calcium 7.1 mg/dL (7.8-10.44); Carbon Dioxide 24 mmol/L (22-29); Chloride 99 mmol/L (98-107); Estimated GFR-MDRD Greater than 90; Glucose 122 mg/dL (70-105); Potassium 3.1 mmol/L (3.5-5.1); Sodium 134 mmol/L (136-145)
[2020-01-02 13:59] LABS: CK (CPK) 10413 U/L (30-200)
[2020-01-02] MEDS ORDERED: Metoprolol Tartrate 25 MG TAB PO SCH (14:00)
--- NOTE | 2020-01-02 14:06 | CT ---
CTA Angio Chest W WO Con History: Diaphoresis. Alcohol withdrawal Comparison: None. Findings: CT angiogram chest performed after the intravenous ministration of contrast. 3-D rendering provided. No proximal segmental pulmonary arterial filling defect. No pericardial effusion. Pulmonary trunk siz e is normal as well as the aorta. Thoracic spine is intact. Sternum and manubrium are intact. Low-grade atelectasis in the lung bases. No confluent airspace consolidation, pneumothorax or effusio n. No suspicious pulmonary nodule. No acute displaced rib fracture. Impression: 1. No pulmonary embolism. 2. No acute inflammatory process within the chest.
[2020-01-02] MEDS ORDERED: Metoprolol Tartrate 25 MG TAB ONE (14:25)
[2020-01-02] MEDS: Potassium Chloride 20 MEQ TAB PO SCH ×3 (14:30→21:28)
[2020-01-02 14:48] VITALS: BMI 29.6
[2020-01-02] MEDS: NS 0.9% w/ 40 MEQ KCL 1,000 ML IV SCH ×3 (15:30→21:49)
[2020-01-02] MEDS: cloNIDine 0.1 MG TAB PO SCH ×2 (16:00→21:29)
--- NOTE | 2020-01-02 16:49 | CON ---
DATE OF CONSULTATION: 01/02/2020 REASON FOR CONSULTATION: Atrial fibrillation with RVR. HISTORY OF PRESENT ILLNESS: Mr. Alves is a very pleasant 44-year-old gentleman, who comes to the hospital for having had a seizure. He drinks a lot of alcohol, and he stopped drinking today after binge, and he thought he had a seizure, drove himself to the ER as he felt palpitations and felt dizzy. He was found to be in atrial fibrillation with RVR and was starting to go through alcohol withdrawal, so he is being admitted for this. He was started on diltiazem drip, currently at 10 and his heart rate is much better controlled from the 160s down to the 120s. PAST MEDICAL HISTORY: 1. History of alcohol abuse. 2. Hypertension. 3. Anxiety and depression. 4. Insomnia. SURGICAL HISTORY: None. SOCIAL HISTORY: Episodic binge drinking. Uses cannabis and tobacco. Living with his father. ALLERGIES: NO KNOWN DRUG ALLERGIES. OUTPATIENT MEDICATIONS: 1. Quetiapine. 2. Lisinopril 40 mg q.h.s. 3. Lexapro. 4. Amlodipine 10 mg a day. REVIEW OF SYSTEMS: A 12-point review of systems was also done and was all negative unless stated in the history of present illness. PHYSICAL EXAMINATION: VITAL SIGNS: Temperature 97.2, pulse 120, respiratory rate 22, saturating 100% on room air, and blood pressure 122/92. GENERAL: Awake, alert, oriented x3. No distress. HEENT: Normocephalic and atraumatic. NECK: Supple. LUNGS: Clear. CARDIOVASCULAR: Irregularly irregular. Heart rate in the 110s to 120s. No murmurs. ABDOMEN: Soft. Positive bowel sounds. EXTREMITIES: No edema. SKIN: Warm and dry. LABORATORY WORK: Reviewed. CBC with a white count of 17, hemoglobin of 15, hematocrit of 42, and platelet count of 128. Coags were reviewed. Chemistries were reviewed. Sodium 134, potassium was 3.1, normal BUN and creatinine, normal GFR. CK was 10,113. Troponin was indeterminate range x2. CK-MB is elevated as well at 92. Prolactin was high. BNP was normal at 19. UA was unremarkable. Toxicology was positive for cannabis. Plasma alcohol was 60. ASSESSMENT: 1. Alcohol withdrawal. 2. Atrial fibrillation with rapid ventricular response. PLAN: 1. Continue to try to rate control at this time. It will be very hard to rate control given he will start going into worsening withdrawal once his alcohol level starts to come back down. 2. Up titrate diltiazem up to 15, and we may have to do p.r.n. boluses of beta max or digoxin to try to slow him down some. 3. Poor candidate for any long-term medication like amiodarone given his alcohol use. Thank you for letting us participate in the care of your patient. We will follow. Job ID: [id number]
[2020-01-02] MEDS ORDERED: Lorazepam 1 MG TAB ONE (16:53)
[2020-01-02] MEDS: Lorazepam 1 MG TAB PO PRN ×2 (16:54→21:28)
[2020-01-02 17:08] LABS: CKMB 72.4 ng/mL (0-6.6); Critical Call CKMB RESULT DECREASING
[2020-01-02] MEDS ORDERED: Metoprolol Tartrate 5 MG/5 ML VIAL IVP PRN (18:00)
[2020-01-02] MEDS ORDERED: Magnesium Sulfate 4 GM in Sodium Chloride 0.9% 250 ML 250 ML IVPB SCH (19:00)
[2020-01-02] MEDS ORDERED: BEER 1 CAN PO SCH (21:00)
[2020-01-02] MEDS ORDERED: Lorazepam 1 MG TAB PO SCH (21:00)
[2020-01-02] MEDS: Cyanocobalamin (Vitamin B-12) 1,000 MCG TAB PO SCH (21:27)
[2020-01-02] MEDS: Famotidine 20 MG TAB PO SCH (21:27)
[2020-01-02] MEDS: Calcium Carbonate 600 MG + Vit D TAB PO SCH (21:29)
[2020-01-02] MEDS: Metoprolol Tartrate 25 MG TAB PO SCH (21:30)
[2020-01-03] MEDS ORDERED: Enoxaparin Sodium 100 MG/ML SYRINGE SC SCH (01:00)
[2020-01-03] MEDS: Enoxaparin Sodium 100 MG/ML SYRINGE SC SCH ×2 (02:45→12:30)
[2020-01-03] MEDS: NS 0.9% w/ 40 MEQ KCL 1,000 ML IV SCH (05:53)
[2020-01-03 05:54] LABS: Phosphorus 2.3 mg/dL (2.3-4.7)
[2020-01-03 05:55] LABS: ALT (SGPT) 95 U/L (8-55); AST (SGOT) 167 U/L (5-34); Albumin 3.1 g/dL (3.5-5.0); Alkaline Phosphatase 90 U/L (40-110); Anion Gap 13 mmol/L (10-20); BUN (Urea Nitrogen) 7 mg/dL (8.9-20.6); Bilirubin, Total 1.3 mg/dL (0.2-1.2); Calc. Creatinine Clearance 205 mL/min (70-130); Calcium 7.9 mg/dL (7.8-10.44); Carbon Dioxide 22 mmol/L (22-29); Chloride 102 mmol/L (98-107); Estimated GFR-MDRD Greater than 90; Globulin 3.1 g/dL (2.4-3.5); Glucose 88 mg/dL (70-105); Magnesium 1.9 mg/dL (1.6-2.6); Protein, Total 6.2 g/dL (6.0-8.3); Sodium 133 mmol/L (136-145)
[2020-01-03 06:07] LABS: CK (CPK) 6067 U/L (30-200)
[2020-01-03 08:41] LABS: #Basophils 0.1 thou/uL (0.0-0.2); #Eosinphils 0.1 thou/uL (0.0-0.7); #Lymphocytes 2.2 thou/uL (1.20-3.40); #Monocytes 0.5 thou/uL (0.11-0.59); #Neutrophils 5.4 thou/uL (1.40-6.50); %Basophils 0.9 % (0.0-1.0); %Lymphocytes 26.5 % (21.0-51.0); %Monocytes 5.7 % (0.0-10.0); Hemoglobin 13.9 g/dL (14.0-18.0); Mean Corpuscular HGB CONC 34.2 g/dL (32.0-36.0); Mean Corpuscular Hemoglobin 30.4 pg (27.0-31.0); Mean Corpuscular Volume 88.8 fL (78.0-98.0); Mean Platelet Volume 9.4 fL (7.4-10.4); Platelet Count 96 thou/uL (130-400); RBC Distribution Width 12.5 % (11.5-14.5); Red Blood Cell (RBC) Count 4.57 mill/uL (4.70-6.10); White Blood Cell (WBC) Count 8.1 thou/uL (4.8-10.8)
[2020-01-03] MEDS ORDERED: Magnesium 2 GM/50 ML 2 GM in Premix Bag 1 BAG IVPB SCH (08:45)
[2020-01-03] MEDS ORDERED: Magnesium Sulfate 2 GM in Sodium Chloride 0.9% 100 ML IVPB SCH (08:45)
[2020-01-03] MEDS: Calcium Carbonate 600 MG + Vit D TAB PO SCH ×2 (08:50→16:41)
[2020-01-03] MEDS: Escitalopram Oxalate 10 mg Tablet PO SCH (08:50)
[2020-01-03] MEDS: Lorazepam 1 MG TAB PO PRN ×3 (08:50→21:55)
[2020-01-03] MEDS: Famotidine 20 MG TAB PO SCH ×2 (08:51→21:51)
[2020-01-03] MEDS: Metoprolol Tartrate 25 MG TAB PO SCH (08:51)
[2020-01-03] MEDS: Folic Acid 1 MG TAB PO SCH (08:51)
[2020-01-03] MEDS: Thiamine 100 MG TAB PO SCH (08:52)
[2020-01-03] MEDS: Multivit, Therapeutic 1 TAB PO SCH (08:52)
[2020-01-03] MEDS ORDERED: Aspirin 81 mg Enteric Coated Tablet PO SCH (09:00)
[2020-01-03] MEDS: cloNIDine 0.1 MG TAB PO SCH ×3 (09:04→21:50)
[2020-01-03] MEDS: Sodium Chloride 0.9% 1,000 ML IV SCH ×3 (09:05→23:55)
[2020-01-03] MEDS ORDERED: Diltiazem 125 MG in Sodium Chloride 0.9% 100 ML IVPB SCH (10:53)
[2020-01-03] MEDS ORDERED: Metoprolol Tartrate 25 MG TAB PO SCH (11:00)
[2020-01-03] MEDS: Potassium Chloride 20 MEQ TAB PO SCH ×2 (11:03→16:41)
[2020-01-03 11:55] LABS: SARS-CoV-2 MS2 Positive; SARS-CoV-2 N Gene Negative; SARS-CoV-2 S Gene Negative; SARS-CoV-2 by NAA Not Detected (NotDetected); SARS-CoV-2 orf1ab Negative
--- NOTE | 2020-01-03 12:51 | PDOC.CPN ---
- Subjective Date: 01/03/20 Time: 12:49 Interval history: Doing better. No new issues. - Review of Systems General: denies: fever/chills, weight/appetite/sleep changes, night sweats, fatigue Respiratory: denies: cough, congestion, shortness of breath, exercise intolerance Cardiovascular: denies: chest pain, palpitation, edema, paroxysmal nocturnal dyspnea, orthopnea Gastrointestinal: denies: nausea, vomiting, diarrhea, constipation, abd pain, GI bleeding Musculoskeletal: denies: pain, tenderness, stiffness, swelling, arthritis/ arthralgias Neurological: denies: numbness, syncope, seizure, weakness - Objective Allergies/Adverse Reactions: Allergies Allergy/AdvReac Type Severity Reaction Status Date / Time No Known Drug Allergies Allergy Verified 01/02/20 14:47 Visit Medications: Current Medications Aspirin (Ecotrin) 81 mg PO DAILY [facility] Last Admin: 01/03/20 08:51 Dose: 81 mg Beer (Beer) 1 each PO [facility] Last Admin: 01/02/20 21:30 Dose: Not Given Calcium Carbonate (Tums) 1,000 mg PO Q4H PRN PRN Reason: Heartburn or Indigestion Calcium/Vitamin D (Caltrate 600 + Vit D) 1 tab PO BID-[facility] Last Admin: 01/03/20 08:50 Dose: 1 tab Chlordiazepoxide HCl (Librium) 10 mg PO TID [facility] Last Admin: 01/03/20 09:04 Dose: 10 mg Clonidine (Catapres) 0.1 mg PO Q4H PRN PRN Reason: SBP GREATER THAN 160 Clonidine (Catapres) 0.1 mg PO TID [facility] Last Admin: 01/03/20 09:04 Dose: 0.1 mg Cyanocobalamin (Vitamin B-12) 1,000 mcg PO [facility] Last Admin: 01/02/20 21:27 Dose: 1,000 mcg Enoxaparin Sodium (Lovenox) 100 mg SC 0100,1300 [facility] Last Admin: 01/03/20 12:30 Dose: 100 mg Escitalopram Oxalate (Lexapro) 10 mg PO DAILY [facility] Last Admin: 01/03/20 08:50 Dose: 10 mg Famotidine (Pepcid) 20 mg PO BID [facility] Last Admin: 01/03/20 08:51 Dose: 20 mg Folic Acid (Folvite) 1 mg PO DAILY [facility] Last Admin: 01/03/20 08:51 Dose: 1 mg Sodium Chloride (Normal Saline 0.9%) 1,000 mls @ 150 mls/hr IV .Q6H40M [facility] Last Admin: 01/03/20 09:05 Dose: 1,000 mls Diltiazem HCl 125 mg/ Sodium (Chloride) 125 mls @ 5 mls/hr IVPB INF VIV; Protocol Lorazepam (Ativan) 2 mg SLOW IVP Q15MIN PRN PRN Reason: Seizures Lorazepam (Ativan) 2 mg PO Q4H PRN PRN Reason: ASE >=7 Last Admin: 01/03/20 08:50 Dose: 2 mg Metoprolol Tartrate (Lopressor) 5 mg IVP Q6H PRN PRN Reason: HR >120 sustained Metoprolol Tartrate (Lopressor) 50 mg PO BID [facility] Metoprolol Tartrate (Lopressor) 25 mg PO NOW [facility] Stop: 01/03/20 13:00 Last Admin: 01/03/20 12:30 Dose: 25 mg Multivitamins (Theragran) 1 tab PO DAILY [facility] Last Admin: 01/03/20 08:52 Dose: 1 tab Nitroglycerin (Nitrostat) 0.4 mg PO Q5MIN PRN PRN Reason: Chest Pain Potassium Chloride (K-Dur) 20 meq PO TID-[facility] Stop: 01/03/20 17:01 Last Admin: 01/03/20 11:03 Dose: 20 meq Quetiapine Fumarate (Seroquel) 25 mg PO HS [facility] Last Admin: 01/02/20 21:27 Dose: 25 mg Sodium Chloride (Flush - Normal Saline) 10 ml IVF PRN PRN PRN Reason: Saline Flush Thiamine HCl (Thiamine) 100 mg PO DAILY [facility] Last Admin: 01/03/20 08:52 Dose: 100 mg Vital Signs & Weight: Vital Signs Temp Pulse Resp BP BP Pulse Ox 01/03/20 11:12 98.6 F 80 18 122/97 H 98 01/03/20 08:49 98.2 F 100 18 121/89 100 01/03/20 08:00 121/89 01/03/20 03:30 98 F 92 12 118/77 100 Weight 218 lb 4.122 oz - Physical Exam General: alert & oriented x3 HEENT: mucus membranes moist Neck: supple neck Cardiac: regular rate and rhythm Lungs: clear to auscultation Neuro: grossly intact Abdomen: active bowel sounds Extremities: no edema Skin: clear Musculoskeletal: no pain - Labs Result Diagrams: 01/03/20 08:21 01/03/20 03:30 Troponin/CKMB CK-MB (CK-2) 72.4 ng/mL (0-6.6) H* 01/02/20 16:15 Troponin I 0.041 ng/mL (< 0.028) H 01/02/20 16:15 - Telemetry Sinus rhythms and dysrhythmias: sinus rhythm - Assessment/Plan Assessment/Plan: 1. Alcohol withdrawal. 2. Atrial fibrillation with rapid ventricular response.Back in sinus. PLAN: - Will switch diltiazem to PO. - Aspirin alone for stroke prophylaxis due to alcohol abuse, not a candidate for full anticoagulation due to injury from inebriation. - Will sign off. Please call with any questions.
--- NOTE | 2020-01-03 19:39 | PDOC.HOSPP ---
- Subjective Encounter Date: 01/03/20 Encounter Time: 14:15 Subjective: Patient seen and examined for atrial fibrillation with rapid ventricular response. Patient converted to sinus rhythm around 10 AM. Cardizem drip was later reduced to 5 mg/hr.. Symptomatically he feels much better. Denies any chest pain palpitations or syncope. - Objective Vital Signs & Weight: Vital Signs (12 hours) Temp Pulse Resp BP BP Pulse Ox 01/03/20 16:41 99.0 F 91 18 129/98 H 99 01/03/20 11:12 98.6 F 80 18 122/97 H 98 01/03/20 08:49 98.2 F 100 18 121/89 100 01/03/20 08:00 121/89 Weight Weight 218 lb 4.122 oz I&O: 01/02/20 01/03/20 01/04/20 06:59 06:59 06:59 Intake Total 1766 3327 Output Total 3600 2780 Balance -1834 547 Result Diagrams: 01/03/20 08:21 01/03/20 03:30 Additional Labs: Laboratory Tests 01/03/20 01/03/20 03:30 03:30 Phosphorus 2.3 AST 167 H ALT 95 H Creatine Kinase 6067 H Radiology Reviewed by me: Yes (CT angiogramno pulmonary embolism) EKG Reviewed by me: Yes (Sinus rhythm) Hospitalist ROS - Review of Systems Respiratory: denies: cough, dry, shortness of breath, hemoptysis, SOB with excertion, pleuritic pain, sputum, wheezing, other Cardiovascular: denies: chest pain, palpitations, orthopnea, paroxysmal noc. dyspnea, edema, light headedness, other Gastrointestinal: denies: nausea, vomiting, abdominal pain, diarrhea, constipation, melena, hematochezia, other All other systems reviewed; all pertinent +/- noted in HPI/Subj - Medication Medications: Active Medications Generic Name Dose Route Start Last Admin Trade Name Freq PRN Reason Stop Dose Admin Beer 1 each 01/02/20 21:00 01/02/20 21:30 Beer PO Not Given HS VIV Calcium/Vitamin D 1 tab 01/02/20 17:00 01/03/20 16:41 Caltrate 600 + Vit D PO 1 tab BID-[facility]IV Administration Chlordiazepoxide HCl 10 mg 01/02/20 21:00 01/03/20 14:54 Librium PO 10 mg TID [facility]IV Administration Clonidine 0.1 mg 01/02/20 15:00 01/03/20 14:54 Catapres PO Not Given TID [facility]IV Cyanocobalamin 1,000 mcg 01/02/20 21:00 01/02/20 21:27 Vitamin B-12 PO 1,000 mcg HS [facility]IV Administration Escitalopram Oxalate 10 mg 01/03/20 09:00 01/03/20 08:50 Lexapro PO 10 mg DAILY [facility] Administration Famotidine 20 mg 01/02/20 21:00 01/03/20 08:51 Pepcid PO 20 mg BID [facility] Administration Folic Acid 1 mg 01/03/20 09:00 01/03/20 08:51 Folvite PO 1 mg DAILY [facility] Administration Sodium Chloride 1,000 mls @ 150 mls/hr 01/03/20 08:45 01/03/20 16:44 Normal Saline 0.9% IV 1,000 mls .Q6H40M [facility] Administration Lorazepam 2 mg 01/02/20 12:06 01/03/20 13:56 Ativan PO 2 mg Q4H PRN Administration ASE >=7 Multivitamins 1 tab 01/03/20 09:00 01/03/20 08:52 Theragran PO 1 tab DAILY [facility] Administration Quetiapine Fumarate 25 mg 01/02/20 21:00 01/02/20 21:27 Seroquel PO 25 mg HS [facility]IV Administration Thiamine HCl 100 mg 01/03/20 09:00 01/03/20 08:52 Thiamine PO 100 mg DAILY [facility] Administration - Exam General Appearance: NAD Neck: supple, no JVD Heart: RRR, no gallops, no rubs, normal peripheral pulses Respiratory: CTAB, no rales, no ronchi, normal chest expansion Gastrointestinal: soft, non-distended, normal bowel sounds, no guarding, no rigidity Extremities: no cyanosis, no clubbing, no edema Skin: normal turgor, no lesions Neurological: no new deficit Psychiatric: normal affect, A&O x 3 Hosp A/P - Plan DVT proph w/lovenox, DVT proph w/SCDs Atrial fibrillation with rapid ventricular response RhabdomyolysisPOA Chronic alcohol abuse HTN Hypokalemia Hypomagnesemia Anxiety Chronic insomnia Cannabis abuse Abnormal LFTs probably secondary to alcoholism Lactic acidosismultifactorial Thrombocytopenia Plan: 01/02 Continue telemetry monitoring. Will discontinue Cardizem drip. Metoprolol dose was increased to 50 mg twice daily. Cardizem has been changed to oral. Continue aspirin for stroke prophylaxis per cardiology. Continue alcohol withdrawal protocol. Patient was extensively counseled on alcohol cessation. Repeat CK in a.m. Change IV fluid to NS at 150 an hour. Replace magnesium. Recheck labs in a.m. DC planning in 1 to 2 days if stable
[2020-01-03] MEDS: Cyanocobalamin (Vitamin B-12) 1,000 MCG TAB PO SCH (21:51)
[2020-01-03] MEDS: Metoprolol Tartrate 50 MG TAB PO SCH (21:51)
[2020-01-04 04:46] LABS: #Eosinphils 0.1 thou/uL (0.0-0.7); #Lymphocytes 2.2 thou/uL (1.20-3.40); #Monocytes 0.4 thou/uL (0.11-0.59); #Neutrophils 3.9 thou/uL (1.40-6.50); %Basophils 0.5 % (0.0-1.0); %Eosinophils 1.2 % (0.0-10.0); %Lymphocytes 33.4 % (21.0-51.0); %Monocytes 6.5 % (0.0-10.0); %Neutrophils 58.4 % (42.0-75.0); Hemoglobin 12.6 g/dL (14.0-18.0); Mean Corpuscular HGB CONC 33.1 g/dL (32.0-36.0); Mean Corpuscular Hemoglobin 29.3 pg (27.0-31.0); Mean Corpuscular Volume 88.6 fL (78.0-98.0); Mean Platelet Volume 10.7 fL (7.4-10.4); Platelet Count 85 thou/uL (130-400); RBC Distribution Width 12.3 % (11.5-14.5); Red Blood Cell (RBC) Count 4.31 mill/uL (4.70-6.10); White Blood Cell (WBC) Count 6.6 thou/uL (4.8-10.8)
[2020-01-04 05:02] LABS: ALT (SGPT) 73 U/L (8-55); AST (SGOT) 109 U/L (5-34); Albumin 3.1 g/dL (3.5-5.0); Alkaline Phosphatase 84 U/L (40-110); Anion Gap 12 mmol/L (10-20); BUN (Urea Nitrogen) 8 mg/dL (8.9-20.6); Bilirubin, Total 0.8 mg/dL (0.2-1.2); CK (CPK) 3275 U/L (30-200); Calc. Creatinine Clearance 185 mL/min (70-130); Calcium 7.7 mg/dL (7.8-10.44); Carbon Dioxide 25 mmol/L (22-29); Chloride 100 mmol/L (98-107); Estimated GFR-MDRD Greater than 90; Globulin 2.8 g/dL (2.4-3.5); Glucose 91 mg/dL (70-105); Magnesium 1.7 mg/dL (1.6-2.6); Potassium 3.2 mmol/L (3.5-5.1); Protein, Total 5.9 g/dL (6.0-8.3); Sodium 134 mmol/L (136-145)
[2020-01-04 05:32] LABS: Phosphorus 2.9 mg/dL (2.3-4.7)
[2020-01-04] MEDS: Lorazepam 1 MG TAB PO PRN (05:45)
[2020-01-04] MEDS: Sodium Chloride 0.9% 1,000 ML IV SCH ×2 (05:46→10:58)
[2020-01-04] MEDS: Calcium Carbonate 600 MG + Vit D TAB PO SCH (08:09)
[2020-01-04] MEDS: Multivit, Therapeutic 1 TAB PO SCH (08:10)
[2020-01-04] MEDS: Metoprolol Tartrate 50 MG TAB PO SCH (08:10)
[2020-01-04] MEDS: Folic Acid 1 MG TAB PO SCH (08:10)
[2020-01-04] MEDS: Escitalopram Oxalate 10 mg Tablet PO SCH (08:10)
[2020-01-04] MEDS: Famotidine 20 MG TAB PO SCH (08:10)
[2020-01-04] MEDS: cloNIDine 0.1 MG TAB PO SCH (08:10)
[2020-01-04] MEDS: Thiamine 100 MG TAB PO SCH (08:11)
[2020-01-04] MEDS ORDERED: Aspirin 325 mg Enteric Coated Tablet PO SCH (09:00)
[2020-01-04] MEDS ORDERED: Potassium Chloride 20 MEQ TAB PO SCH ×2 (09:00→12:00)
[2020-01-04] MEDS ORDERED: Magnesium Sulfate 4 GM in Sodium Chloride 0.9% 250 ML 250 ML IVPB SCH (09:00)
[2020-01-04 11:49] VITALS: BP 139/39; TEMP 98.8
--- NOTE | 2020-01-04 13:11 | DIS ---
DATE OF ADMISSION: 01/02/2020 DATE OF DISCHARGE: 01/04/2020 DISCHARGE DISPOSITION: Home. FOLLOWUP: 1. With primary care physician at [facility] in 1 week. 2. With Cardiology, Dr. Klein in 2 weeks. 3. Basic metabolic profile and CK after 1 week is recommended. 4. Primary care physician advised to follow. The patient was extensively counseled on alcohol cessation. DISCHARGE MEDICATIONS: 1. Metoprolol 50 mg b.i.d. 2. Aspirin 81 mg daily for stroke prophylaxis. 3. Thiamine. 4. Folic acid. 5. Multivitamin. All other home medications were left unchanged. BRIEF HOSPITAL COURSE: The patient is a 44-year-old male with alcohol abuse, presented to the hospital with generalized weakness along with lightheadedness when he woke up in the morning. Please refer to the history and physical for further details. The patient was admitted to the hospital with a diagnosis of atrial fibrillation with rapid ventricular response. He was started on Cardizem drip with intermittent doses of metoprolol. He was found to have electrolyte abnormalities with potassium of 2.5 along with hypomagnesemia. Electrolytes were gradually replaced. He was evaluated by Cardiology as well. Next day, he spontaneously converted to sinus rhythm. Cardizem drip was later discontinued. He has remained in sinus rhythm for last 24 hours. He has been cleared by Cardiology for discharge. He is not a candidate for full dose anticoagulation due to history of alcoholism per Cardiology. He will take 81 mg aspirin instead. The patient was also found to have rhabdomyolysis with CK of 10,400 on admission that has improved to 3275 at discharge. He was advised to maintain adequate oral fluid intake. He will benefit from repeat labs including CK after 1 week. The patient was also found to have abnormal LFTs on admission that is gradually improving. The patient was advised to follow up with Cardiology as outpatient for an echocardiogram and possible stress test. FINAL DIAGNOSES: 1. Atrial fibrillation with rapid ventricular response. The patient spontaneously converted to sinus rhythm. 2. Rhabdomyolysis. 3. Chronic alcohol abuse with alcohol intoxication on admission. 4. Hypertension. 5. Hypomagnesemia. 6. Hypokalemia. 7. Anxiety. 8. Chronic insomnia. 9. Cannabis abuse. 10. Abnormal LFTs probably secondary to alcoholism and improving. 11. Lactic acidosis. 12. Thrombocytopenia. 13. Hyponatremia. SIGNIFICANT LABS: Potassium on admission 2.5. Lactic acid 5.9. Troponin 0.069. AST maximum was 279, ALT maximum was 129. CT angiogram of the chest was negative for pulmonary embolism. Chest x-ray was negative. CT scan of the brain was negative. The patient understands the above plan of care. He denies any suicidal or homicidal ideation. Time coordinating the discharge of this patient was 35 minutes. Job ID: [id number]
== END 2020-01-04 14:10 | disposition home or self-care (01) | DRG 309 ==
LOC: ERS 08:59 → ERHOLD 11:30 → 2NO 19:18
PROVIDERS: ADMIT Internal Medicine; ATTEND Internal Medicine
DX: I48.91 Unspecified atrial fibrillation (principal); M62.82 Rhabdomyolysis; E87.2 Acidosis; E87.1 Hypo-osmolality and hyponatremia; F10.129 Alcohol abuse with intoxication, unspecified; I10 Essential (primary) hypertension; E87.6 Hypokalemia; E83.42 Hypomagnesemia; F51.04 Psychophysiologic insomnia; F12.10 Cannabis abuse, uncomplicated; D69.6 Thrombocytopenia, unspecified; F17.290 Nicotine dependence, other tobacco product, uncomplicated; F32.9 Major depressive disorder, single episode, unspecified; F41.9 Anxiety disorder, unspecified; Z79.01 Long term (current) use of anticoagulants
CPT/HCPCS: 36415; 70450; 71045; 71275; 80053; 80306; 80307; 81003; 81015; 82140; 82550; 82553; 83605; 83690; 83735; 83880; 84100; 84146; 84443; 84484; 85025; 85379; 85610; 85730; 87086; 87635; 93005; 94760; 96361; 96365; 96366; 96367; 96368; 96372; 96375; 96376; J1650; J2060; J3411; J3475; J3480; J3490; J7042; J7050; Q9967; U0003